=== PATIENT | male | born 1960 | race Caucasian/White ===

== ENCOUNTER 2022-12-13 11:31 | Outpatient (RCR) | payer BC, SELFPAY ==
--- NOTE | 2022-12-13 15:30 | HP.OTEVAL_ITS ---
Patient's Visit Information Visit Information Visit Information: JESSICA ZAFAR is a 62 year old M, referred to Occupational Therapy by Dr. Ramakrishna Ji MD, with a diagnosis of M65.9 Flexor tenosynovitis of finger, left index. Date of Evaluation: 12/13/22 Occupational Therapist: Ebony Boyd Subjective Subjective: Pt arrives 1 week and 3 days post op for OT eval with dorsal blocking splint donned. Pt s/p of left hand reconstruction of flexor digitorum profondus of index finger with palmaris longus; tenosynovectomy of flexor tendons; removal of hardware on 12/03/2022. Hardware removed was from a previous fall and had an ORIF of L wrist. Pt complains of stiffness and concerns regarding edema on anterior aspect of wrist around incision site. Pt able to manage brace IND on eval. Pt reports dressing can be difficult, has slip on shoes, though able to manage performing zippers and buttons with increased time and 1 handed techniques. Pt reports he has exercises and has been performing within the supported brace. 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 These tasks require bilateral gross and fine motor control. Pt is keeping brace on for the majority of the time, including while performing showers. Pt reports stitches come out December 16. ROM CMC: R ext 29/45 abduction 45/55 MP: R 61 L 55 IP: R 68 L 54 MP: R IF 93 MF 85 RF 82 LF 78; L IF 60 MF 46 RF 15 LF 5 PIP: R IF 112 MF 106 RF 103 LF 103; L IF 85 MF 81 RF 78 LF 65 DIP: R IF 71 MF 79 RF 65 LF 78; L IF 5 MF 45 RF 50 LF 68 ROM Comments: deferring L wrist extension AROM measurements at this time d/t contraindications. may be measured at a later date once wrist extension is initiated. Strength Environmental Services Specialist: R 93# Lateral Pinch: R 18# Tripod Pinch: R 12# Strength Comments: Strength not assessed on L hand Edema Wrist: radial styliod R 17.5 L 20; 3 proximal rad styl. R 18 L19 Other: MCPs R23 L 22; pitting edema grade 1 noted L dorsal hand Quick DASH-Disab of Arm,Shoulder& Hand Quick DASH Score: [phone] Goals Goal:100% adherence to protocol: Yes Goal:Daily scar massage when approriate: Yes Goal:ROM equal to unaffected hand: Yes Goal:Environmental Services Specialist/Pinch strength at least 75% of unaffected hand: Yes Goal:No pain with affected hand use: Yes Goal:PIP Circumferences equal to unaffected hand: Yes Other Goal: Pt will demo understanding of edema control techniques by end of 2nd session and perform recommendations to control edema. Pt to demo improved L tripod/lateral pinch strength to equal strength at R hand respectively in order to maintain grasp on objects while performing work related and ADL tasks. Pt will IND perform HEP for increased ROM as protocol allows. Rehabilitation General Assessment: OT evaluated patient for s/p left hand reconstruction of flexor digitorum profondus of index finger with palmaris longus; tenosynovectomy of flexor tendons; removal of hardware completed on 12/03/2022. Pt is now 1 week and 3 days post surgery. Pt presented with edema and has a protocol to safely progress pt to return to functional tasks. Pt is unable to perform work responsibilities and limited in ADL tasks. Pt will benefit to be seen for skilled OT for 2-3x week for 12 weeks for increased IND in ADL and IADL tasks. Pt agreeable to OT POC and verbalizes understanding of exercises provided. Next appointment will be scheduled after second Dr follow-up to ensure safe progression and pt understanding of next step. Rehabilitation Potential: Excellent Anticipated Interventions Anticipated Interventions: Early Active Motion, A/AAROM/PROM, Strengthening, Edema Control, Scar Care, Triggerpoint Release, Modalities, Orthoses, Joint Protection/Energy Conservation, Ergonomic Education, Fine Motor Coord/Earnest, Neuro Reeducation, Sensory Stimulation, Visual/Perceptual Skills, ADL Training, Education re assistive Equipment, Manual Lymph Drainage, Education re Skin Care and Precautions, Education re Self Massage Techniques and Home Program Other Interventions: Early short arc active motion protocol for flexor tendons zones 1-3 Visit Plan Frequency: 2-3x /Week Duration: 3 Months General Plan: PROTOCOL edema reduction techniques, follow flexor tendon precautions, orthosis worn manager of financial reporting except controlled exercises, maintain ROM of the non-involved elbow and shoulder, and perform self-care activities one handed while protecting tendon repair Post 2nd operative visit - Continue all first post-operative visit, Initiate protected synergistic wrist motion SWM (tenodesis) - active wrist flexion with fingers flexed, activities wrist extension to only 20 degrees extension, with fingers blocked from going into extension (protected flexion) DO NOT ALLOW ACTIVE WRIST AND FINGER EXTENSION. DO NOT ALLOW PROM WRIST. Perform in the clinic only 10 reps. Third Post-Operative visit: 1) Continue all exercises initiated at first and second post-operative visits 2) If FDS intact and in the small finger sufficient, initiate FDS isolated glide in the orthosis PERFORM ONLY in clinic 10 reps only 3) IF PIP or DIP passive extension is limited with the MP in flexion and there are no precautions for protected passive extension, initiate passive PIP extension with the MP in flexion and DIP relaxed, and passive DIP extension with the MP and PIP in flexion. Perform 10 reps. Add to home program if patient able to perform correctly in clinic. 2 WEEKS post-op: 1) Continue PROM for flexion 2) Continue protected passive IP extension 3) Continue isolated FDS glide in orthosis 4) Continue protected SWM in clinic only 5) Increase short arc motion in orthosis; have patient place uninvolved hand perpendicular to the involved hand at the DPC now just 3 fingers ring, long, index. Have patient actively flex to the index, extend to the orthosis. Perform x10 reps 6x a day. 6) Continue to have patient remove orthosis allow patient to actively extend fingers as able to comfort with the wrist in neutral. Perform 10 reps 6x days. DO NOT ALLOW WRIST EXTENSION. 7) Continue edema management. 8) Continue ROM elbow and shoulder 9) Continue orthosis manager of financial reporting. FOR REST OF PROTOCOL see in Aliza's desk. TEXT: Thank you for the opportunity to evaluate your patient. For Medicare and Medicare HMO plans, please review the plan of care and approve it. It will need to be FAXED BACK to us at [phone] for Medicare purposes. Please let me know if there are questions or concerns regarding this plan of care. Physician Signature: Date:
--- NOTE | 2023-06-08 14:04 | HP.OT.NRP ---
Patient Information Patient Information: JESSICA ZAFAR was seen in my office for initial evaluation on 12/13/22. The following Plan of Care was established for this patient: POC Established Initial Frequency: 2-3x /Week Initial Duration: 3 Months Anticipated Interventions Anticipated Interventions: Early Active Motion, A/AAROM/PROM, Strengthening, Edema Control, Scar Care, Triggerpoint Release, Modalities, Orthoses, Joint Protection/Energy Conservation, Ergonomic Education, Fine Motor Coord/Earnest, Neuro Reeducation, Sensory Stimulation, Visual/Perceptual Skills, ADL Training, Education re assistive Equipment, Manual Lymph Drainage, Education re Skin Care and Precautions, Education re Self Massage Techniques and Home Program Other Interventions: Early short arc active motion protocol for flexor tendons zones 1-3 Last Seen Last Seen: This patient was last seen in our office 12/13/22. Pertinent comments regarding their Occupational therapy will appear below: pt was seen for eval only- no further apts scheduled. due to time lapse in services pt is d/c at this time. At this point I will be discontinuing this patient from occupational therapy. I would be happy to see this patient again in the future if found appropriate by the physician. Thank you! Bel Macedo, OTR/L, CHT
== END 2022-12-13 19:00 | disposition home or self-care (01) ==
LOC: OT 11:31
PROVIDERS: Referring Provider Orthopaedic Surgery Hand Surgery; Visit Provider Orthopaedic Surgery Hand Surgery
DX: M65.9 Synovitis and tenosynovitis, unspecified (principal)
CPT/HCPCS: 97110; 97165